=== PATIENT | male | born 1985 | race African-American/Black ===

== ENCOUNTER 2016-12-09 17:42 | Emergency (ER) | payer MEDICARE, MEDICAID ==
[~2016-12-09] VITALS: Ht 170.2 cm; Wt 82.0 kg
[2016-12-10 00:05] VITALS: BP 154/98
== END 2016-12-10 00:10 | disposition home or self-care (01) ==
LOC: ER 17:42
DX: Z76.0 Encounter for issue of repeat prescription (principal); F20.9 Schizophrenia, unspecified; F12.10 Cannabis abuse, uncomplicated
CPT/HCPCS: 99283

== ENCOUNTER 2021-06-16 09:54 | Emergency (ER) | payer MEDICARE, MEDICAID ==
[~2021-06-16] VITALS: Ht 170.2 cm; Wt 91.0 kg
[2021-06-16 09:59] VITALS: BP 148/82
[2021-06-16 13:06] LABS: CLARITY URINE CLEAR (CLEAR); COLOR URINE YELLOW (YELLOW); KETONES URINE NEGATIVE (NEGATIVE); LEUKOCYTE ESTERASE URINE NEGATIVE (NEGATIVE); NITRITE URINE NEGATIVE (NEGATIVE); OCCULT BLOOD URINE NEGATIVE (NEGATIVE); PROTEIN URINE NEGATIVE (NEGATIVE); SPECIFIC GRAVITY URINE 1.012 (1.005-1.030); UROBILINOGEN URINE 0.2 E.U./dL (0.2-1.0)
[2021-06-17] MEDS ORDERED: IBUP-2030 MT (16:26)
[2021-06-17] MEDS ORDERED: P20 MT (16:26)
[2021-06-18 04:07] LABS: NEISSERIA GONORRHOEAE NAA Negative (Negative)
== END 2021-06-16 11:52 | disposition left against medical advice (07) ==
LOC: ER 10:17
DX: J02.9 Acute pharyngitis, unspecified (principal); A64 Unspecified sexually transmitted disease; F20.9 Schizophrenia, unspecified; F12.10 Cannabis abuse, uncomplicated
CPT/HCPCS: 81003; 87070; 87430; 87491; 87591; 99283

== ENCOUNTER 2021-06-17 13:32 | Emergency (ER) | payer MEDICARE, MEDICAID ==
[~2021-06-17] VITALS: Ht 170.2 cm; Wt 91.0 kg
[2021-06-17 13:50] VITALS: BP 136/98
[2021-06-17] MEDS ORDERED: IBUP-2030 MT (16:26)
[2021-06-17] MEDS ORDERED: P20 MT (16:26)
== END 2021-06-17 16:40 | disposition home or self-care (01) ==
LOC: ER 13:32
DX: J02.9 Acute pharyngitis, unspecified (principal); Z20.2 Contact with and (suspected) exposure to infections with a predominantly sexual mode of transmission
CPT/HCPCS: 99283

== ENCOUNTER 2021-07-28 09:52 | Emergency (ER) | payer MEDICARE, MEDICAID ==
[~2021-07-28] VITALS: Ht 170.2 cm; Wt 87.0 kg
[~2021-07-28 09:52] MED LIST: IBUP-2030 MT; P20 MT
[2021-07-28 10:00] VITALS: BP 162/99
[2021-07-28] MEDS ORDERED: MUPI1OIN4 TP (10:11)
== END 2021-07-28 10:27 | disposition home or self-care (01) ==
LOC: ER 10:22
DX: R23.8 Other skin changes (principal); F20.9 Schizophrenia, unspecified; F12.10 Cannabis abuse, uncomplicated
CPT/HCPCS: 99281

== ENCOUNTER 2022-02-09 13:16 | Emergency (ER) | payer MEDICARE, MEDICAID ==
[~2022-02-09] VITALS: Ht 170.2 cm; Wt 82.0 kg
[~2022-02-09 13:16] MED LIST changes: +MUPI1OIN4 TP
[2022-02-09 13:32] VITALS: BP 120/76
[2022-02-09] MEDS ORDERED: BICT1TAB3 (13:37)
[2022-02-09] MEDS ORDERED: ARIP300S IM (13:37)
[2022-02-09] MEDS ORDERED: IBUPROFEN 600MG TABLET PO ONE (15:45)
== END 2022-02-09 17:26 | disposition left against medical advice (07) ==
LOC: ER 13:34
DX: J02.9 Acute pharyngitis, unspecified (principal); F20.9 Schizophrenia, unspecified; F12.10 Cannabis abuse, uncomplicated
CPT/HCPCS: 99281